=== PATIENT | male | born 1975 | race Caucasian/White ===

== ENCOUNTER 2017-03-01 11:53 | Emergency (ER) | payer BC ==
--- NOTE | 2017-03-01 12:29 | Emergency Department Record ---
History of Present Illness - General Chief complaint: Extremity Problem Stated complaint: RT HAND INJURY Time Seen by Provider: 03/01/17 12:25 Source: Patient Mode of Arrival: Ambulatory Limitations: No limitations - History of Present Illness Initial comments: The patient is here due to injuring his R 2nd and 3rd fingers at work. He smashed them between 2 large objects at work an hour ago. His Td is UTD. There is a laceration to the finger pad of the 2nd finger. MD Complaint: Extremity pain Onset/Timin -: Minutes(s) Location: Right, Hand History of Same: No Radiation: None Severity scale (1-10): 4 Quality: Aching Consistency: Constant Improves with: Elevation Worsens with: Palpation Associated Symptoms: Denies other symptoms - Related Data Previous Rx's Medication Instructions Recorded Cephalexin [Keflex] 500 mg PO QID #20 cap 03/01/17 Allergies Allergy/AdvReac Type Severity Reaction Status Date / Time No Known Drug Allergies Allergy Verified 03/01/17 12:06 Travel Screening - Travel/Exposure Within Last 30 Days Have you traveled within the last 30 days?: Yes Location Detail:: [place] - Travel/Exposure Within Last Year Have you traveled outside the [place] in the last year?: No - Additonal Travel Details Have you been exposed to anyone with a communicable illness?: No - Travel Symptoms Symptom Screening: None Review of Systems Constitutional: Denies: Chills, Fever Past Medical History - SOCIAL HISTORY Smoking Status: Never smoker Alcohol Use: None Drug Use: None - RESPIRATORY Hx Respiratory Disorders: No - CARDIOVASCULAR Hx Cardio Disorders: No - NEURO Hx Neuro Disorders: No - GI Hx GI Disorders: No - Hx Genitourinary Disorders: No - ENDOCRINE Hx Endocrine Disorders: No - MUSCULOSKELETAL Hx Musculoskeletal Disorders: No - PSYCH Hx Psych Problems: No - HEMATOLOGY/ONCOLOGY Hx Hematology/Oncology Disorders: No Family Medical History Any Significant Family History?: Yes Hx Cancer: Father Physical Exam - General General Appearance: Alert, Oriented x3, Cooperative, No acute distress - Head Head exam: Atraumatic, Normocephalic, Normal inspection - Eye Eye exam: Normal appearance, PERRL - Extremities Extremities exam: Full ROM (There is full ROM active and passive to the fingers with normal sensation. ), Tenderness (There is mild tenderness to the distal R 2nd finger.). negative: Normal inspection (There are abrasions to the R 3rd finger dorsally. There is a flap type laceration to the R 2nd finger over the finger pad. There also is a small lac next to the nail bed dorsally.) Image of Hand: 1 - Flap lac. 2 - Superficial lac. - Neurological Neurological exam: Alert. negative: Abnormal gait, Motor sensory deficit Course Vital Signs 03/01/17 12:06 Temperature 98.5 F Pulse Rate 74 Respiratory 20 Rate Blood Pressure 162/102 Pulse Ox 97 - Reevaluation(s) Reevaluation #1: Procedure note: The R 2nd finger was anesth. with 3 cc's Lido 1% using a digital block technique. The finger lac was a flap and not down to tendon or bone. The lac was closed with 6 4.0 nylon sutures over the finger pad and 2 4.0 sutures around a superficial lac next to the nail dorsally. There was no nail injury. 03/01/17 13:22 Medical Decision Making - Data Complexity MDM Data: X-Ray Ordered and/or Reviewed - Radiology Data Radiology results: Report reviewed (R hand: Neg.) Disposition Disposition: Discharge Clinical Impression: Laceration of finger Qualifiers: Encounter type: initial encounter Finger: index finger Damage to nail status: with damage Foreign body presence: without foreign body Laterality: right Qualified Code(s): S61.310A - Laceration without foreign body of right index finger with damage to nail, initial encounter Disposition: Home, Self-Care Condition: (1) Good Instructions: Laceration (ED) Additional Instructions: Please keep the 2nd and 3rd finger dressings in place for 2 days. After removal wash daily but no soaking. Watch for signs of infection. Take the Keflex as directed. Have the sutures removed in 10 days. Prescriptions: Cephalexin [Keflex] 500 mg PO QID #20 cap Forms: Patient Portal Access Time of Disposition: 13:26 Quality - Quality Measures Quality Measures: N/A - Blood Pressure Screening View Details: Yes Does Patient Have Any of the Following: No Blood Pressure Classification: Hypertensive Reading Systolic Measurement: 157 Diastolic Measurement: 100 Screening for High Blood Pressure: < Pre-Hypertensive BP, F/U Documented > [ [id number]] Pre-Hypertensive Follow-up Interventions: Referral to alternative/primary care provider.
--- NOTE | 2017-03-02 08:56 | RADIOLOGY REPORT ---
EXAM: RIGHT HAND, THREE VIEWS HISTORY: RIGHT HAND INJURY, LACERATION SECOND DIGIT. TECHNIQUE: Three views of the right hand were obtained. Comparison: None. Encounter: Initial. FINDINGS: No bone or joint abnormality. No radiodense foreign body. IMPRESSION: NEGATIVE RIGHT HAND EXAMINATION. JOB NUMBER: [id number] MTDD
== END 2017-03-01 13:39 | disposition home or self-care (01) ==
LOC: ER 11:53
DX: S61.310A Laceration without foreign body of right index finger with damage to nail, initial encounter (principal); S60.412A Abrasion of right middle finger, initial encounter; W24.0XXA Contact with lifting devices, not elsewhere classified, initial encounter; Y99.0 Civilian activity done for income or pay
CPT/HCPCS: 12001; 99283; 99284